=== PATIENT | male | born 1990 | race Caucasian/White ===

== ENCOUNTER 2019-10-10 19:21 | Inpatient (IN) | payer MEDICAID, SELFPAY ==
[2019-10-10 19:34] VITALS: BP 155/91; PULSE 105; RESP 18; TEMP 36.8; O2SAT 98; BMI 19.1
--- NOTE | 2019-10-10 19:43 | ED_ITS ---
HPI - Psych General: Chief Complaint: Psychiatric Symptoms Stated Complaint: mhe Time Seen by Provider: 10/10/19 19:38 Source: patient Mode of arrival: ambulatory Limitations: no limitations History of Present Illness: HPI Narrative: 28-year-old male with a history of schizophrenia states he has been having increased agitation feels like his schizophrenia is worsening. Patient saw his psychiatrist today feels like he needs to be admitted to the psychiatric unit for his hallucinations. Review of Systems Const: Denies: fever(s), chills, body aches or change in appetite Eyes: Denies: blurry vision or eye discomfort ENMT: Denies: throat pain or dental pain Card: Denies: chest pain Resp: Denies: dyspnea GI: Denies: abdominal pain, nausea, vomiting or diarrhea : Denies: dysuria Musc: Denies: neck pain or back pain Skin/Breast: Denies: rash Neuro: Denies: headache(s) Psych: Reports: anxiety and paranoia Phong/Lymph: Denies: easy bruising All/Imm: Denies: urticaria PFSH ED PFSH: Medical History Cannabis dependence See marijuana use in the subjective comments below. Excessive caffeine intake See caffeine use in the subjective comments below. Major depressive disorder, recurrent, mild Refer to subjective information below. Social History Smoking and tobacco status: current every day smoker cigarettes Packs smoked per day: 0.5 Years cigarettes smoked: 15 Quit status (tobacco): considering quitting Second hand smoke exposure: Yes Smoking risk assessment/counseling performed?: No Physical Exam Const: COMMON NORMALS: no acute distress, patient oriented x3 and healthy appearing HENMT: COMMON NORMALS: normocephalic and atraumatic HEAD & SCALP: normocephalic and atraumatic Eye: COMMON NORMALS: Equal, round and reactive pupils present and EOMs intact bilaterally PUPIL: Yes Equal, round and reactive pupils present Neck/C-Spine: COMMON NORMALS: full ROM and supple Chest: COMMONS NORMALS: normal inspection of the chest and normal palpation of entire chest wall Resp: COMMON NORMALS: normal respiratory effort, No retractions, No use of accessory muscles and clear to auscultation bilaterally AUSCULTATION: clear to auscultation bilaterally Cardio: COMMON NORMALS: regular rate, regular rhythm and No murmurs present (Cardio) RATE: regular rate RHYTHM: regular rhythm GI: COMMON NORMALS: Normal to inspection, nondistended, normoactive bowel sounds present, Soft to palpation, non-tender and no masses PALPATION: Yes Soft to palpation Extremity: COMMON NORMALS: normal to inspection and full ROM Neuro: COMMON NORMALS: patient oriented x3, moves all extremities and no focal motor deficits Psych: COMMON NORMALS: cooperative and speech normal ATTITUDE: Yes paranoid ACTIVITY/MOTOR BEHAVIOR: Yes fidgeting and Yes restless SPEECH: Yes normal speech Skin: COMMON NORMALS: no rashes or lesions noted and no wounds GENERAL SKIN EXAM: no rashes or lesions noted MDM - Psych MDM Narrative: Medical decision making narrative: pt presents here with acute psychosis along with drug use. he is not suicidal or homicidal. I spoke to dr. wilkes and will admit to the npu. He is voluntarily wanting to stay at the npu. Lab Data: Labs: Lab Results 10/10/19 10/10/19 Range/Units 19:42 19:42 WBC 9.6 (4.0-10.0) 10^3/ uL RBC 4.78 (4.1-5.3) 10^6/u L Hgb 14.3 (11.7-16.6) g/dL Hct 44.4 (42.0-52.0) % MCV 92.9 (80-94) fL MCH 29.9 (28.0-34.0) pg MCHC 32.2 (30.0-36.0) g/dL RDW 13.4 (12.1-15.1) % Plt Count 269 (130-400) 10^3/c mm MPV 9.4 (7.4-10.4) fL Neut % (Auto) 49.5 % Lymph % (Auto) 37.4 % [place] % (Auto) 9.5 % Eos % (Auto) 2.8 % Baso % (Auto) 0.6 % Neut # (Auto) 4.73 (1.8-7.7) 10^3/u L Lymph # (Auto) 3.6 (0.8-4.8) 10^3/u L [place] # (Auto) 0.9 (0.2-0.9) 10^3/u L Eos # (Auto) 0.3 (0.0-0.8) 10^3/u L Baso # (Auto) 0.1 (0.0-0.1) 10^3/u L Nucleated RBC % (a uto) 0 % Nucleated RBCs # 0.0 /100WBC Sodium 136 (136-145) mmol/L Potassium 4.1 (3.5-5.1) mmol/L Chloride 101 (98-107) mmol/L Carbon Dioxide 28 (22-29) mmol/L Anion Gap 11.1 (5-19) BUN 9 (6-20) mg/dL Creatinine 0.7 (0.7-1.2) mg/dL GFR Calculation 132.4 H (90-130) mL/min Glucose 98 (65-115) mg/dL Calculated Osmolal ity 278 L (285-295) mOsm/k g Calcium 9.3 (8.5-10.5) mg/dL Total Bilirubin 0.2 (0.15-1.2) mg/dL AST 23 (0-40) U/L ALT 31 (0-41) U/L Alkaline Phosphata se 62 (40-130) IU/L Total Protein 6.9 (6.6-8.7) g/dL Albumin 4.6 (3.5-5.2) g/dL Globulin 2.3 (1.3-4.6) g/dL Salicylates < 0.3 L (3-10) mg/dL Acetaminophen < 5.0 L (10-30) ug/mL Ethyl Alcohol < 10 (0-10) mg/dL Discharge Plan Discharge Patient Disposition: Admitted As Inpatient Admit Provider: Isidro Wilkes Clinical Impression: Acute psychosis Condition: Stable Coding Level of Care Code ED Aerotriangulation Specialist for g Fwd Exam Comprehensive
[2019-10-10 19:46] LABS: Basophils # 0.1 10^3/uL (0.0-0.1); Basophils % 0.6 %; Eosinophils # 0.3 10^3/uL (0.0-0.8); Eosinophils % 2.8 %; Hematocrit 44.4 % (42.0-52.0); Hemoglobin 14.3 g/dL (11.7-16.6); Lymphocytes # 3.6 10^3/uL (0.8-4.8); Lymphocytes % 37.4 %; Mean Corpuscular HGB Conc 32.2 g/dL (30.0-36.0); Mean Corpuscular Hemoglobin 29.9 pg (28.0-34.0); Mean Corpuscular Volume 92.9 fL (80-94); Mean Platelet Volume 9.4 fL (7.4-10.4); Monocytes # 0.9 10^3/uL (0.2-0.9); Monocytes % 9.5 %; Neutrophils # 4.73 10^3/uL (1.8-7.7); Neutrophils % 49.5 %; Nucleated Red Blood Cells % 0 %; Platelet Count 269 10^3/cmm (130-400); Red Blood Count 4.78 10^6/uL (4.1-5.3); Red Cell Distribution Width 13.4 % (12.1-15.1); White Blood Count 9.6 10^3/uL (4.0-10.0)
[2019-10-10 20:02] LABS: Alanine Aminotransferase 31 U/L (0-41); Albumin Level 4.6 g/dL (3.5-5.2); Alkaline Phosphatase 62 IU/L (40-130); Anion Gap 11.1 (5-19); Aspartate Amino Transferase 23 U/L (0-40); Blood Urea Nitrogen 9 mg/dL (6-20); Calcium 9.3 mg/dL (8.5-10.5); Carbon Dioxide 28 mmol/L (22-29); Chloride 101 mmol/L (98-107); Globulin 2.3 g/dL (1.3-4.6); Glomerular Filtration Rate 132.4 mL/min (90-130); Glucose 98 mg/dL (65-115); Osmolality Calculated 278 mOsm/kg (285-295); Potassium 4.1 mmol/L (3.5-5.1); Sodium 136 mmol/L (136-145); Total Bilirubin 0.2 mg/dL (0.15-1.2); Total Protein 6.9 g/dL (6.6-8.7)
--- NOTE | 2019-10-10 20:25 | PC.NURSE ---
during pt rounds @ 1950, pt seen ambulating in hallway wanting to leave dept to smoke pt informed of No Smoking policy, suggested a nicotine patch. Pt refusing nicotine patch, stating I'll cross that bridge when I get to it .
[2019-10-10 20:30] LABS: Acetaminophen < 5.0 ug/mL (10-30); Alcohol Level < 10 mg/dL (0-10); Salicylate < 0.3 mg/dL (3-10)
[2019-10-10 21:35] VITALS: BP 141/78; PULSE 94; RESP 18; TEMP 36.6; O2SAT 98
[2019-10-10 21:39] LABS: Amphetamines Screen Urine Negative (Negative); Barbiturates Screen Urine Negative (Negative); Benzodiazepines Screen Urine Negative (Negative); Cocaine Screen Urine Negative (Negative); Opiate Screen Urine Negative (Negative); PCP Screen Urine Negative (Negative); THC Screen Urine Positive (Negative)
--- NOTE | 2019-10-10 22:40 | PC.NURSE ---
Patient Behavior Patient came to desk and was saying unrecognizable phrases. Offered Trazodone but refused.
[2019-10-11 06:00] VITALS: RESP 16
[2019-10-11] MEDS: ARIPiprazole 10 mg Tablet 5 MG PO (11:34)
[2019-10-11 13:46] VITALS: BP 122/81; PULSE 81; RESP 18; TEMP 36.3; O2SAT 97
[2019-10-11 22:00] VITALS: BP 129/80; PULSE 84; RESP 18; TEMP 36.7; O2SAT 97
[2019-10-12 06:00] VITALS: BP 122/86; PULSE 75; RESP 18; TEMP 36.6; O2SAT 98
[2019-10-12] MEDS: ARIPiprazole 10 mg Tablet 5 MG PO (08:16)
--- NOTE | 2019-10-12 09:30 | P.HP_ITS ---
Providers/Chief Complaint Admitting Physician: Isidro Perry MD Chief Complaint: I may have schizophrenia but it may be HPI NPU History of Present Illness Chief complaint: I think I may have schizophrenia but it may just be psychotic narcissism. History of present illness:Ever Sewell is a 28 year old male who is not adapting to recent changes in his environment. He is extremely introspectiv e and self monitoring of his thought processes and believes his thoughts are so disordered as to be psychotic. He does not know whether he has schizophrenia but he does not note that he is not thinking clearly. He does not feel that he is depressed. He has good hedonic capacity. He is optimistic for the future. He feels overwhelmed and perplexed but denies feeling hopeless. There are no suicidal or homicidal ideations. He has difficulty interpreting questions regarding psychosis. Once auditory hallucinations is defined, he states that he occasionally has those but not often. His reality testing is good by his report. What is clear is that he has a significant level of disorganized thinking. He is aware that his thoughts are not organized and it is from this and his frustration and feelings of being overwhelmed at solving the problems in his life are causing him distress. He recently has had a number of life changes as described below. He is coming to return to living with his family. He alternatively describes them as being supportive and manipulative and demeaning. He is unsure how to proceed and dealing with them as they are a primary source of his distress at this time. A significant factor in this case is the patient's extensive history of mind altering drug use. He denies ever having used methamphetamine. However he admits to heavy and frequent use of it nearly every other type of hallucinogen or illicit drug that is available. He does not feel that they have caused him harm and in fact feels that they are the source of his enlightenment. His urine drug screen on presentation: Laboratory Tests 10/10/19 10/10/19 19:42 19:45 Urine Opiates Screen Negative Ur Barbiturates Screen Negative Ur Phencyclidine Scrn Negative Ur Amphetamines Screen Negative U Benzodiazepines Scrn Negative Urine Cocaine Screen Negative U Marijuana (THC) Screen Positive H Ethyl Alcohol < 10 It is noted that there are an increasing variety of types of medications which do not show up on a drug screen. However the patient denies having taking anything other than marijuana recently and he appears to be a reliable informant to that extent. Mental health history: He has 1 prior inpatient psychiatric hospitalization 5 years ago from an overdose of MDMA. Otherwise he has no prior psychiatric history. He has never seen a psychiatrist or been treated with medications. Family psychiatric history is negative for diagnoses to his knowledge. Social history: The patient was born in [place] and moved to [facility] at age 6. He has lived in various places and describes his life as being somewhat charmed. He was fortunate enough to go to college in [place]. He apparently did not graduate. He went to a [employer] school. He eventually wound up living in a [facility] [facility] in [facility]. It is unclear what his level of function was prior to entering the commune. But clearly, drug use seem to be at the center of his activity. The financial situation at the commune apparently declined and recently he has moved in with his mother and his brother and sister. Though he says they are supportive, there apparently is significant family discord. Legal history: There are no reports in [place] public record of arrests or convictions. Past medical history: The patient is in otherwise good medical health. His medical history is fully detailed in the ER assessment and physical exam. Meds NPU Home Medications Medication Instructions Recorded Confirmed Last Taken Type aripiprazole 5 mg PO DAILY #30 tab 10/12/19 Unknown Rx mirtazapine [Remeron] 15 mg PO DAILY #30 tab 10/12/19 10/10/19 Unknown Rx Allergies Allergy/AdvReac Type Severity Reaction Status Date / Time No Known Allergies Allergy Verified 10/10/19 14:07 [facility] N[facility] PFS: Medical History Cannabis dependence See marijuana use in the subjective comments below. Excessive caffeine intake See caffeine use in the subjective comments below. Major depressive disorder, recurrent, mild Refer to subjective information below. Social History Smoking and tobacco status: current every day smoker cigarettes Packs smoked per day: 0.5 Years cigarettes smoked: 15 Quit status (tobacco): considering quitting Second hand smoke exposure: Yes Smoking risk assessment/counseling performed?: No Mental Status Exam MSE Comments: Mental Status Exam: The patient is an alert interpersonally engaged male appearing approximately his stated age. His hygiene is good but he has long stringy unkempt hair and grooming is poor. He is generally believed to be a reliable informant to the best of his ability. However his ability is not very good. Appearance: hygiene is good; no gross neurological deficits., gait is unremarkable; AIMS=0 Speech: Speech is of normal rate and rhythm and easily understood. Thought processes: Thought processes are quite idiosyncratic and illogical.. However, judgment is adequate for safety. He demonstrates significant disorganization in his thinking and perseverates on psychological terms as they apply to himself, his family and his world. He continues to refer to personality disorders that do not exist such as psychotic narcissism and borderline OCD. He is able to understand concrete terms such as hearing voices outside of one's head but cannot understand the term auditory hallucinations. Associations: Loose and inconsistent Psychotic processes: There is no indication of guarding or paranoia. There is no attention to the internal stimuli. Auditory are episodic and visual hallucinations are denied. Judgment: Insight is quite poor. Problem solving skills are adequate for safety. Orientation: The patient is oriented to person, place time and situation. Memory: no deficits noted in immediate, intermediate, or remote spheres. Attention: The patient is alert and interpersonally engaged. Language: Verbalizations are coherent. Fund of knowledge: Fund of knowledge is fair except for the area of mental health terms and concepts. Affect/Mood: Affect is consistent with a euthymic mood. He denies suicidal ideation Affective range appropriate. Psychosis: Perception is severely impaired primarily by his level of disorganized thinking. It is amplified by his perseveration on mental health terms which she does not understand. But even when discussing other topics, he has difficulty focusing his attention long enough to participate in abstract thinking. He is easily overwhelmed. On several occasions and during the interview, he became perplexed. When he becomes perplexed, he turns himself away from the interviewer and just sort of stares at the wall and makes hand motions and talks nonsensically. This will last perhaps a minute before he returns to the interview. His level of disorganization seems to amplify under any emotional distress. Vitals/I&O/Wt Last Vital Signs Temp 97.9 F 10/12/19 06:00 Pulse 75 10/12/19 06:00 Resp 18 07/10/20 06:00 BP 122/86 10/12/19 06:00 Pulse Ox 98 10/12/19 06:00 Weight last 48 hrs Weight 60.328 kg Data NPU : 10/10/19 19:42 10/10/19 19:42 A&P Assessment and plan (1) Psychotic disorder: Status: Acute Qualifiers: Psychosis type: unspecified psychosis type Qualified Code(s): F29 - Unspecified psychosis not due to a substance or known physiological condition (2) Cannabis dependence: Status: Chronic Additional A&P Information Diagnoses: Psychotic disorder not otherwise specified: Assessment: The patient demonstrates a psychosis of thought disorder rather than a psychosis of thought content. He does not frankly hear auditory hallucinations or have paranoid ideations. However his thought processes are so disorganized and nonlinear as to prevent him from actively testing reality effectively. It is from this thinking that he become so perplexed and has difficulty understanding his world. This is amplified by his incredibly poor understanding of complex mental health terms which she does not understand. Given his history of having graduated from high school and also attending college apparently successfully, it would be reasonable to assume that this now maladaptive thought process i developed later in his life. Given his description of the wide variety of hallucinogenic and mind altering pharmaceuticals in which she has ingested, it is most likely that this is a result of that repeated attack on brain function. Unfortunately, psychosis of thought disorder does not readily respond to antipsychotic medication. There may be some mild benefit. But the primary intervention should be to have the patient exist in a structured setting and most importantly allow the brain to operate in a drug-free environment. Treatment plan: Due to the psychiatric conditions and treatment listed in the Assessment and Plan - the patient requires continued hospitalization. Will provide a safe and therapeutic environment for patient.. Will continue inpatient treatment to allow for medication adjustment and monitoring. Will continue q15 min safety checks. Hospital day #1: Will continue mirtazapine and initiate Abilify 5 mg daily in e hope of having a positive effect on the level of thought organization. And monitor for medication side effects. It is strongly recommended that the patient achieve a clean and sober state. Unfortunately, the patient has no intention of doing that. Monitor patient's mood, sleep, appetite, and behavior closely. Encourage patient to participate in individual and group therapeutic sessions on the nolan. Estimated length of stay 5 days The expected benefits and potential side effects of patient's psychiatric medications were discussed with the patient. The patient understands and consents to treatment.CRITERIA FOR DISCHARGE: stable on medications and no longer an imminent risk. Involuntary Hold Information 96 Hour Hold: 96 Hour Involuntary Admission: No Attestations NPU Medical Necessity Statement*: Patient will remain in the hospital 1 more night to assess medication efficacy and tolerance. Coding Level of Care Code Acute Courtesy Clerk for Cecil Camejo Diagnoses Psychotic disorder F29 Psychosis type: unspecified psychosis type Cannabis dependence F12.20
[2019-10-12 09:31] VITALS: BP 122/86; PULSE 75; RESP 18; TEMP 36.6; O2SAT 98
--- NOTE | 2019-10-12 10:07 | P.DS_ITS ---
Diagnoses at Discharge Discharge Diagnosis (1) Psychotic disorder: Status: Chronic Qualifiers: Psychosis type: unspecified psychosis type Qualified Code(s): F29 - Unspecified psychosis not due to a substance or known physiological condition (2) Cannabis dependence: Status: Chronic Problem details: See marijuana use in the subjective comments below. Reason for Visit Reason for Visit: I may have schizophrenia but it may be Brief History: Chief complaint: I think I may have schizophrenia but it may just be psychotic narcissism. History of present illness:Ever Sewell is a 28 year old male who is not adapting to recent changes in his environment. He is extremely introspective and self monitoring of his thought processes and believes his thoughts are so disordered as to be psychotic. He does not know whether he has schizophrenia but he does not note that he is not thinking clearly. He does not feel that he is depressed. He has good hedonic capacity. He is optimistic for the future. He feels overwhelmed and perplexed but denies feeling hopeless. There are no suicidal or homicidal ideations. He has difficulty interpreting questions regarding psychosis. Once auditory hallucinations is defined, he states that he occasionally has those but not often. His reality testing is good by his report. What is clear is that he has a significant level of disorganized thinking. He is aware that his thoughts are not organized and it is from this and his frustration and feelings of being overwhelmed at solving the problems in his life are causing him distress. He recently has had a number of life changes as described below. He is coming to return to living with his family. He alternatively describes them as being supportive and manipulative and demeaning. He is unsure how to proceed and dealing with them as they are a primary source of his distress at this time. A significant factor in this case is the patient's extensive history of mind altering drug use. He denies ever having used methamphetamine. However he admits to heavy and frequent use of it nearly every other type of hallucinogen or illicit drug that is available. He does not feel that they have caused him harm and in fact feels that they are the source of his enlightenment. His urine drug screen on presentation: Laboratory Tests 10/10/19 10/10/19 19:42 19:45 Urine Opiates Screen Negative Ur Barbiturates Screen Negative Ur Phencyclidine Scrn Negative Ur Amphetamines Screen Negative U Benzodiazepines Scrn Negative Urine Cocaine Screen Negative U Marijuana (THC) Screen Positive H Ethyl Alcohol < 10 It is noted that there are an increasing variety of types of medications which do not show up on a drug screen. However the patient denies having taking anything other than marijuana recently and he appears to be a reliable informant to that extent. Mental health history: He has 1 prior inpatient psychiatric hospitalization 5 years ago from an overdose of MDMA. Otherwise he has no prior psychiatric history. He has never seen a psychiatrist or been treated with medications. Family psychiatric history is negative for diagnoses to his knowledge. He was seen earlier today by his outpatient psychiatrist on first visit: Chief Complaint: I think I might be schizophrenic or something History of Present Illness: This is a 28-year-old white male who has a past psychiatric history of recurrent depression in addition to heavy cannabis dependence and excessive caffeine intake he does have a history of substance- induced psychosis in the distant past with an admission in 2016. Today the patient presents very unrelated, with paranoid delusional themes, acknowledging some auditory hallucinations at times and appearing internally occupied at times, he has disorganized thought process and psychomotor agitation with poor insight and judgment. Is unclear if this is substance-induced psychosis which is quite likely as he has been treated for depression for a long time now. He does have a family history of schizophrenia for we have seen review of chart records and he has a history of other substance abuse as well including alcohol abuse, Adderall abuse and opioid abuse in the past but he denies those at this time but he does say that he smokes marijuana all day long in addition to at least 2 packs/day of cigarettes and an unknown amount of caffeine but he also acknowledged ecstasy use and use of mushrooms and is unclear if those been recent. He is not threatening to hurt himself or others at this time and he denies any command hallucinations but he does get fairly agitated when I recommend the idea of being admitted to the hospital for further evaluation. I told by Leatha velazquez that his family was filling out 96-hour paperwork and I completed an affidavit. History Past Psychiatric History: He has had 1 psychiatric admission from what I can tell for substance-induced psychosis. He has been treated in the past with Zyprexa which he said was helpful for him but that was in 2013. It is unclear if he is compliant with the mirtazapine at this time. Family History: He says he has at least one family member in [place] who has schizophrenia and treated with antipsychotics and records indicate that he does have a family history of schizophrenia. Social history: The patient was born in [place] and moved to [facility] at age 6. He has lived in various places and describes his life as being somewhat charmed. He was fortunate enough to go to college in [place]. He apparently did not graduate. He went to a [employer] school. He eventually wound up living in a [facility] in [facility]. It is unclear what his level of function was prior to entering the commune. But clearly, drug use seem to be at the center of his activity. The financial situation at the commune apparently declined and recently he has moved in with his mother and his brother and sister. Though he says they are supportive, there apparently is significant family discord. Legal history: There are no reports in [place] public record of arrests or convictions. Past medical history: The patient is in otherwise good medical health. His medical history is fully detailed in the ER assessment and physical exam. Hospital Course Hospital Course Diagnoses: Psychotic disorder not otherwise specified: Assessment: The patient demonstrates a psychosis of thought disorder rather than a psychosis of thought content. He does not frankly hear auditory hallucinations or have paranoid ideations. However his thought processes are so disorganized and nonlinear as to prevent him from actively testing reality effectively. It is from this thinking that he become so perplexed and has difficulty understanding his world. This is amplified by his incredibly poor understanding of complex mental health terms which she does not understand. Given his history of having graduated from high school and also attending college apparently successfully, it would be reasonable to assume that this now maladaptive thought process i developed later in his life. Given his description of the wide variety of hallucinogenic and mind altering pharmaceuticals in which she has ingested, it is most likely that this is a result of that repeated attack on brain function. Unfortunately, psychosis of thought disorder does not readily respond to antipsychotic medication. There may be some mild benefit. But the primary intervention should be to have the patient exist in a structured setting and most importantly allow the brain to operate in a drug-free environment. Treatment plan: Due to the psychiatric conditions and treatment listed in the Assessment and Plan - the patient requires continued hospitalization. Will provide a safe and therapeutic environment for patient.. Will continue inpatient treatment to allow for medication adjustment and monitoring. Will continue q15 min safety checks. Hospital day #1: Will continue mirtazapine and initiate Abilify 5 mg daily in the hope of having a positive effect on the level of thought organization. And monitor for medication side effects. It is strongly recommended that the patient achieve a clean and sober state. Unfortunately, the patient has no intention of doing that. Hospital day #2: Patient reported Abilify provided some benefit in improving his level of organization. At that time, he stated he felt that he was ready to return home and would have medications reassessed at his next outpatient appointment. Involuntary Hold Information 96 Hour Hold: 96 Hour Involuntary Admission: No Mental Status Exam MSE Comments: Mental Status Exam: The patient is an alert interpersonally engaged male appearing approximately his stated age. His hygiene is good but he has long stringy unkempt hair and grooming is poor. He is generally believed to be a reliable informant to the best of his ability. However his ability is not very good. Appearance: hygiene is good; no gross neurological deficits., gait is unremar kable; AIMS=0 Speech: Speech is of normal rate and rhythm and easily understood. Thought processes: Thought processes are quite idiosyncratic and illogical.. However, judgment is adequate for safety. He demonstrates significant disorganization in his thinking and perseverates on psychological terms as they apply to himself, his family and his world. He continues to refer to personality disorders that do not exist such as psychotic narcissism and borderline OCD. He is able to understand concrete terms such as hearing voices outside of one's head but cannot understand the term auditory hallucinations. Associations: Loose and inconsistent Psychotic processes: There is no indication of guarding or paranoia. There is no attention to the internal stimuli. Auditory are episodic and visual hallucinations are denied. Judgment: Insight is quite poor. Problem solving skills are adequate for safety. Orientation: The patient is oriented to person, place time and situation. Memory: no deficits noted in immediate, intermediate, or remote spheres. Attention: The patient is alert and interpersonally engaged. Language: Verbalizations are coherent. Fund of knowledge: Fund of knowledge is fair except for the area of mental health terms and concepts. Affect/Mood: Affect is consistent with a euthymic mood. He denies suicidal ideation Affective range appropriate. Psychosis: Perception is severely impaired primarily by his level of disorganized thinking. It is amplified by his perseveration on mental health terms which she does not understand. But even when discussing other topics, he has difficulty focusing his attention long enough to participate in abstract thinking. He is easily overwhelmed. On several occasions and during the interview, he became perplexed. When he becomes perplexed, he turns himself away from the interviewer and just sort of stares at the wall and makes hand motions and talks nonsensically. This will last perhaps a minute before he returns to the interview. His level of disorganization seems to amplify under any emotional distress. Cognition: Patient Appearance: Disheveled/Poor Hygiene Level of Consciousness: Awake, Alert, Appropriate and Follows Commands Patient Cognition Impaired: No Ability to Follow Directions: Excellent Patient Orientation (long list): Person and Place Comprehension Ability: No Impairment Hallucination Type: None Thought Process: Flight of Ideas Affect: Affect Description: Calm Behavior: Patient Behavior: Withdrawn Speech Pattern: Clear Discharge Data Vitals: Last Vital Signs Temp 97.9 F 10/12/19 09:31 Pulse 75 10/12/19 09:31 Resp 18 10/12/19 09:31 BP 122/86 10/12/19 09:31 Pulse Ox 98 10/12/19 09:31 Discharge Plan Discharge Patient Disposition: Home, Self-Care Condition: Stable Prescriptions: New aripiprazole 10 mg Tablet 5 mg PO DAILY Qty: 30 RF: 4 Continued Remeron 15 mg tablet 15 mg PO DAILY Qty: 30 RF: 4 Discharge Orders: Discharge Order (Routine); Ordered 10/12/19 Ordered By: Chidi Riggs Referrals: Gareth Vieira MD [Physician] - 7-10 days Patient Instructions: Aripiprazole (By mouth) Discharge Attestations NPU Time Spent in Discharge Care*: greater than 30 min Coding Level of Care Code Acute Medicaid Eligibility Specialist for Chg Fwd Diagnoses Psychotic disorder F29 Psychosis type: unspecified psychosis type Cannabis dependence F12.20
[2019-10-12 11:12] VITALS: BP 122/86; PULSE 75; RESP 18; TEMP 36.6; O2SAT 98
== END 2019-10-12 12:38 | disposition home or self-care (01) | DRG 885 ==
LOC: ER 20:43 → NP 20:50
PROVIDERS: Emergency Medicine; Admitting Provider Psychiatry & Neurology Psychiatry; Visit Provider Psychiatry & Neurology Psychiatry
DX: F29 Unspecified psychosis not due to a substance or known physiological condition (principal); F12.20 Cannabis dependence, uncomplicated; F17.210 Nicotine dependence, cigarettes, uncomplicated
CPT/HCPCS: 12345; 36415; 80053; 80306; 80307; 85025; 99284

== ENCOUNTER → 2020-05-12 08:10 | Outpatient (BNVA) | payer MEDICAID, SELFPAY | PROVIDERS: Visit Provider Psychiatry & Neurology Psychiatry | DX: F33.0 Major depressive disorder, recurrent, mild (principal); F29 Unspecified psychosis not due to a substance or known physiological condition; Z78.9 Other specified health status; F12.20 Cannabis dependence, uncomplicated | CPT/HCPCS: 99214 ==

== ENCOUNTER → 2020-07-21 13:30 | Outpatient (BNVA) | payer MEDICAID, SELFPAY | PROVIDERS: Visit Provider Psychiatry & Neurology Psychiatry | DX: F29 Unspecified psychosis not due to a substance or known physiological condition (principal); Z78.9 Other specified health status; F12.20 Cannabis dependence, uncomplicated; F33.0 Major depressive disorder, recurrent, mild | CPT/HCPCS: 99214 ==

== ENCOUNTER → 2020-11-07 12:58 | Outpatient (BNVA) | payer MEDICAID, SELFPAY | PROVIDERS: Visit Provider Psychiatry & Neurology Psychiatry | DX: F29 Unspecified psychosis not due to a substance or known physiological condition (principal); F33.0 Major depressive disorder, recurrent, mild; Z78.9 Other specified health status; F12.20 Cannabis dependence, uncomplicated | CPT/HCPCS: 99213 ==

== ENCOUNTER → 2021-01-27 12:49 | Outpatient (BNVA) | payer MEDICAID, SELFPAY | PROVIDERS: Visit Provider Psychiatry & Neurology Psychiatry | DX: F33.0 Major depressive disorder, recurrent, mild (principal); Z78.9 Other specified health status; F12.20 Cannabis dependence, uncomplicated | CPT/HCPCS: 99214 ==

== ENCOUNTER → 2021-03-10 14:42 | Outpatient (BNVA) | payer MEDICAID, SELFPAY | PROVIDERS: Visit Provider Psychiatry & Neurology Psychiatry | DX: F33.0 Major depressive disorder, recurrent, mild (principal); F29 Unspecified psychosis not due to a substance or known physiological condition; Z78.9 Other specified health status; F12.20 Cannabis dependence, uncomplicated | CPT/HCPCS: 99214 ==

== ENCOUNTER → 2021-06-18 08:02 | Outpatient (BNVA) | payer MEDICAID, SELFPAY | PROVIDERS: Visit Provider Psychiatry & Neurology Psychiatry | DX: F33.0 Major depressive disorder, recurrent, mild (principal); F29 Unspecified psychosis not due to a substance or known physiological condition; Z78.9 Other specified health status; F12.20 Cannabis dependence, uncomplicated | CPT/HCPCS: 99213 ==

== ENCOUNTER → 2021-08-07 15:22 | Outpatient (BNVA) | payer MEDICAID, SELFPAY | PROVIDERS: Visit Provider Psychiatry & Neurology Psychiatry | DX: F29 Unspecified psychosis not due to a substance or known physiological condition (principal); F33.1 Major depressive disorder, recurrent, moderate; F41.1 Generalized anxiety disorder; F12.20 Cannabis dependence, uncomplicated | CPT/HCPCS: 99214 ==

== ENCOUNTER → 2021-09-04 15:02 | Outpatient (BNVA) | payer MEDICAID, SELFPAY | PROVIDERS: Visit Provider Psychiatry & Neurology Psychiatry | DX: F41.1 Generalized anxiety disorder (principal); F33.1 Major depressive disorder, recurrent, moderate; F12.20 Cannabis dependence, uncomplicated; F29 Unspecified psychosis not due to a substance or known physiological condition | CPT/HCPCS: 99214 ==

== ENCOUNTER → 2023-10-28 16:12 | Outpatient (BNVA) | payer OTHER, SELFPAY | PROVIDERS: Visit Provider Psychiatry & Neurology Psychiatry | DX: F33.0 Major depressive disorder, recurrent, mild (principal); Z79.899 Other long term (current) drug therapy | CPT/HCPCS: 80061; 83036 ==